=== PATIENT | female | born 1965 | race Caucasian/White ===

== ENCOUNTER → 2023-11-08 13:04 | Outpatient (REF) | payer BC, SELFPAY | LOC: EMG 13:04 | PROVIDERS: ATTENDING PHYSICIAN Psychiatry & Neurology Sleep Medicine; FAMILY PHYSICIAN Family Medicine | DX: M21.372 Foot drop, left foot (principal) | CPT/HCPCS: 95886; 95913 ==

== ENCOUNTER → 2024-12-16 16:35 | Outpatient (REF) | payer OTHER, SELFPAY | LOC: PAVMRI 16:35 | PROVIDERS: ATTENDING PHYSICIAN Orthopaedic Surgery Orthopaedic Surgery of the Spine; FAMILY PHYSICIAN Family Medicine | DX: M48.062 Spinal stenosis, lumbar region with neurogenic claudication (principal) | CPT/HCPCS: 72148 ==

== ENCOUNTER → 2024-12-23 10:57 | Outpatient (REF) | payer OTHER, SELFPAY | LOC: HWWDC 10:57 | PROVIDERS: ATTENDING PHYSICIAN Nurse Practitioner Adult Health; FAMILY PHYSICIAN Family Medicine | DX: Z12.31 Encounter for screening mammogram for malignant neoplasm of breast (principal); Z78.0 Asymptomatic menopausal state | CPT/HCPCS: 77063; 77067; 77080 ==